=== PATIENT | male | born 1970 | race Caucasian/White ===

== ENCOUNTER 2017-09-13 09:27 | Day surgery (SDC) | payer OTHER ==
[~2017-09-13 09:27] MED LIST: CIPRO500 MG PO; HYOSCYAMINE0.125 M1 SL; INTESTINEX1 CA1 PO; OXYC1TAB9 PO; PROTONIX40 MG PO; TAMS0.4C PO
== END 2017-09-13 13:50 | disposition home or self-care (01) ==
LOC: AMB-ENDOS 09:27 → CIR.AMB 13:15 → AMB-ENDOS 13:27
DX: K62.89 Other specified diseases of anus and rectum (principal); Z85.038 Personal history of other malignant neoplasm of large intestine; Z93.2 Ileostomy status

== ENCOUNTER 2021-04-28 08:44 | Day surgery (SDC) | payer OTHER | END 2021-04-28 13:48 | disposition home or self-care (01) | LOC: AMB-ENDOS 08:44 | PROVIDERS: ATTEND Surgery | DX: K63.5 Polyp of colon (principal); Z20.822 Contact with and (suspected) exposure to COVID-19 ==

== ENCOUNTER 2024-12-03 10:27 | Outpatient (CLI) | payer OTHER | END 2024-12-03 10:36 | disposition home or self-care (01) | LOC: SONOGRAMA 10:27 | PROVIDERS: ATTEND Orthopaedic Surgery | DX: M75.111 Incomplete rotator cuff tear or rupture of right shoulder, not specified as traumatic (principal) ==